=== PATIENT | female | born 1995 | race Caucasian/White ===

== ENCOUNTER → 2016-08-30 | Outpatient (RCR) | payer BC, OTHER ==
--- OUTSIDE RECORDS SUMMARY | 2016-06-01 09:41 | XMS REPORT | Continuity of Care Document ---
Author Author [facility] Organization [facility] Address Unknown Phone Unavailable Care Team Providers Care Jd Edwards Name Role Phone Jose France PCP [phone] Source Comments Some departments are not documenting in the electronic medical record. If you do not see the information that you expected, contact Release of Information in the Health Information Management department at [phone] for further assistance in locating additional records.[facility] Active Allergies and Adverse Reactions No Known Allergies Current Medications Prescription Sig. Disp. Refills Start End Date Status Date hydrocodone/acetaminophen Take 1-2 Tabs by mouth Active (VICODIN) 5/500 mg PO Every 4 Hours as needed. 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 No rupture, cytology. Preoperative AFP 8.4 and CA125 18.4 Social History Tobacco Use Types Packs/Day Years Used Date Never Assessed Last Filed Vital Signs Vital Sign Reading Time Taken Blood Pressure 106/55 08/01/2010 11:36 AM MANAGER CIVIL Pulse 85 08/01/2010 11:36 AM MANAGER CIVIL Temperature 36.8 C (98.3 F) 08/01/2010 11:36 AM MANAGER CIVIL Respiratory Rate - - Height 1.651 m (5' 5") 08/01/2010 11:36 AM MANAGER CIVIL Weight 66.951 kg (147 lb 9.6 oz) 08/01/2010 11:36 AM MANAGER CIVIL Body Mass Index 24.56 08/01/2010 11:36 AM MANAGER CIVIL Oxygen Saturation - - Plan of Care Health Maintenance Due Date Last Done Comments Physical (Comprehensive) 2000 Exam Hpv Vaccines (#1) 2004 Pertussis Vaccine 2004 Tetanus Vaccine 2010 Cervical Cancer Screening 2014 Influenza Vaccine 03/02/2016 Results from Last 3 Months Not on file
[~2016-08-30] MED LIST: HYDR1CAP2 PO
== END | disposition home or self-care (01) ==
PROVIDERS: ATTEND Nurse Practitioner Family
DX: M25.552 Pain in left hip (principal)

== ENCOUNTER 2016-10-10 22:07 | Emergency (ER) | payer BC, OTHER ==
[~2016-10-10] VITALS: Ht 167.6 cm; Wt 68.9 kg
[2016-10-10] MEDS ORDERED: ONDANSETRON 4 MG/2 ML (SDV) Z0FRAN ONE (22:09)
[2016-10-10] MEDS ORDERED: NS IV 1000 ML 1,000 ML ONE (22:09)
--- NOTE | 2016-10-10 22:17 | ED General ---
General Stated Complaint: ETOH Source of Information: Patient Exam Limitations: No Limitations (RICHIE WEBSTER APRN) History of Present Illness Time Seen by Provider: 22:15 Initial Comments To ER by her fianc with reports of alcohol intoxication. Patient began drinking tonight about 5 p.m. for Sunday while out with friends. She had entire picture of simon by herself, 6-7 beers and several shots of tequila. Her last drink was about 25 minutes prior to arrival to the emergency room. They were at [employer] getting some ice cream and patient passed out onto the ground. She denies any other recreational substance abuse though she does take meloxicam and had that this evening and 2 of her Zoloft which is her normal dose every evening Timing/Duration: 1-2 Days Severity: Moderate (RICHIE WEBSTER APRN) Allergies and Home Medications Allergies Uncoded Allergies: Zofran (Adverse Reaction, Mild, 10/11/16) Extraparametal symptoms Home Medications Hydrocodone Bit/Acetaminophen 1 Each Capsule, 1 EACH PO Q4HR PRN, (Reported) Constitutional: see HPI EENTM: see HPI Respiratory: no symptoms reported Cardiovascular: no symptoms reported Genitourinary: no symptoms reported Musculoskeletal: no symptoms reported Skin: no symptoms reported Psychiatric/Neurological: No Symptoms Reported Hematologic/Lymphatic: No Symptoms Reported (RICHIE WEBSTER APRN) Past Vddqrrx-Trnspl-Rpfxxa Hx Respiratory Hx Respiratory Disorders: Yes (RICHIE WEBSTER APRN) Cardiovascular Hx Cardiac Disorders: Yes (RICHIE WEBSTER APRN) Neurological Hx Neurological Disorders: No (RICHIE WEBSTER APRN) Reproductive System Hx Reproductive Disorders: No (RICHIE WEBSTER APRN) Genitourinary Hx Genitourinary Disorders: No (RICHIE WEBSTER APRN) Gastrointestinal Hx Gastrointestinal Disorders: No (RICHIE WEBSTER APRN) Musculoskeletal Hx Musculoskeletal Disorders: No (RICHIE WEBSTER APRN) Endocrine Hx Endocrine Disorders: No (RICHIE WEBSTER APRN) HEENT HX ENT Disorders: No (RICHIE WEBSTER APRN) Psychosocial Hx Psychiatric Problems: No (RICHIE WEBSTER APRN) Blood Transfusions Hx Blood Disorders: No (RICHIE WEBSTER APRN) Physical Exam Vital Signs Vital Sign - Last 12Hours 10/10/16 22:07 Temp 97.6 Pulse 101 Resp 16 B/P (MAP) 139/88 Pulse Ox 100 O2 Delivery Room Air (ALETHA JACOBSON MD) Vital Signs Capillary Refill : (RICHIE WEBSTER APRN) General Appearance: No Apparent Distress, WD/WN, Other (mental status varies from incoherent with mumbling to alert and talking constantly. She is able to recite her date, location and repetitively apologizes for getting drunk tonight. She is actively vomiting upon arrival to the emergency room.) Eyes: Bilateral Eye EOMI, Bilateral Eye Normal Inspection, Bilateral Eye PERRL HEENT: PERRL/EOMI, TMs Normal, Other (horizontal nystagmus noted) Neck: Full Range of Motion, Normal Inspection Respiratory: Normal Breath Sounds, No Accessory Muscle Use, No Respiratory Distress Cardiovascular: Regular Rate, Rhythm, Normal Peripheral Pulses Gastrointestinal: Non Tender, Soft Extremity: Normal Capillary Refill, Normal Inspection Neurologic/Psychiatric: Alert, Oriented x3, No Motor/Sensory Deficits Skin: Normal Color, Warm/Dry (RICHIE WEBSTER APRN) Progress/Results/Core Measures Results/Orders Lab Results Laboratory Tests Test 10/10/16 22:12 10/10/16 23:13 Range/Units White Blood Count 11.2 H 4.3-11.0 10^3/uL Red Blood Count 4.34 L 4.35-5.85 10^6/uL Hemoglobin 12.4 11.5-16.0 G/DL Hematocrit 37 35-52 % Mean Corpuscular Volume 86 80-99 FL Mean Corpuscular Hemoglobin 29 25-34 PG Mean Corpuscular Hemoglobin Concent 33 32-36 G/DL Red Cell Distribution Width 12.1 10.0-14.5 % Platelet Count 327 130-400 10^3/uL Mean Platelet Volume 10.5 H 7.4-10.4 FL Neutrophils (%) (Auto) 37 L 42-75 % Lymphocytes (%) (Auto) 54 H 12-44 % Monocytes (%) (Auto) 6 0-12 % Eosinophils (%) (Auto) 3 0-10 % Basophils (%) (Auto) 0 0-10 % Neutrophils # (Auto) 4.2 1.8-7.8 X 10^3 Lymphocytes # (Auto) 6.0 H 1.0-4.0 X 10^3 Monocytes # (Auto) 0.6 0.0-1.0 X 10^3 Eosinophils # (Auto) 0.3 0.0-0.3 10^3/uL Basophils # (Auto) 0.0 0.0-0.1 10^3/uL Sodium Level 144 135-145 MMOL/L Potassium Level 3.6 3.6-5.0 MMOL/L Chloride Level 112 H 98-107 MMOL/L Carbon Dioxide Level 20 L 21-32 MMOL/L Anion Gap 12 5-14 MMOL/L Blood Urea Nitrogen 12 7-18 MG/DL Creatinine 0.74 0.60-1.30 MG/DL Estimat Glomerular Filtration Rate > 60 BUN/Creatinine Ratio 16 Glucose Level 98 70-105 MG/DL Calcium Level 8.9 8.5-10.1 MG/DL Magnesium Level 2.2 1.8-2.4 MG/DL Total Bilirubin 0.2 0.1-1.0 MG/DL Aspartate Amino Transf (AST/SGOT) 18 5-34 U/L Alanine Aminotransferase (ALT/SGPT) 10 0-55 U/L Alkaline Phosphatase 47 40-136 U/L Total Protein 7.2 6.4-8.2 G/DL Albumin 4.4 3.2-4.5 G/DL Serum Alcohol 206 H <10 MG/DL Urine Color YELLOW Urine Clarity CLEAR Urine pH 5 5-9 Urine Specific Bowdle 1.010 L 1.016-1.022 Urine Protein NEGATIVE NEGATIVE Urine Glucose (UA) NEGATIVE NEGATIVE Urine Ketones NEGATIVE NEGATIVE Urine Nitrite NEGATIVE NEGATIVE Urine Bilirubin NEGATIVE NEGATIVE Urine Urobilinogen NORMAL NORMAL MG/DL Urine Leukocyte Esterase NEGATIVE NEGATIVE Urine RBC (Auto) NEGATIVE NEGATIVE Urine RBC NONE /HPF Urine WBC NONE /HPF Urine Squamous Epithelial Cells 0-2 /HPF Urine Crystals NONE /LPF Urine Bacteria NEGATIVE /HPF Urine Casts NONE /LPF Urine Mucus NEGATIVE /LPF Urine Culture Indicated NO Urine Test NEGATIVE NEGATIVE Urine Opiates Screen NEGATIVE NEGATIVE Urine Oxycodone Screen NEGATIVE NEGATIVE Urine Methadone Screen NEGATIVE NEGATIVE Urine Propoxyphene Screen NEGATIVE NEGATIVE Urine Barbiturates Screen NEGATIVE NEGATIVE Ur Tricyclic Antidepressants Screen NEGATIVE NEGATIVE Urine Phencyclidine Screen NEGATIVE NEGATIVE Urine Amphetamines Screen NEGATIVE NEGATIVE Urine Methamphetamines Screen NEGATIVE NEGATIVE Urine Benzodiazepines Screen NEGATIVE NEGATIVE Urine Cocaine Screen NEGATIVE NEGATIVE Urine Cannabinoids Screen NEGATIVE NEGATIVE (ALETHA JACOBSON MD) My Orders Orders - ALETHA JACOBSON MD Ondansetron Injection (Zofran Injectio (10/10/16 22:09) Ns Iv 1000 Ml (Sodium Chloride 0.9%) (10/10/16 22:09) Diphenhydramine Injection (Benadryl Inje (10/10/16 23:45) Magnesium (10/10/16 23:39) Diphenhydramine Injection (Benadryl Inje (10/10/16 23:45) (ALETHA JACOBSON MD) Medications Given in ED Current Medications Medications Dose Ordered Sig/Vikas Route Start Time Stop Time Status Last Admin Dose Admin Diphenhydramine HCl 12.5 mg Q4H ONCE IVP 10/10/16 23:45 10/10/16 23:46 DC 10/10/16 23:36 12.5 MG Ondansetron HCl 8 mg ONCE ONCE IVP 10/10/16 22:30 10/10/16 22:31 DC 10/10/16 22:12 8 MG (ALETHA JACOBSON MD) Vital Signs/I&O Vital Sign - Last 12Hours 10/10/16 22:07 Temp 97.6 Pulse 101 Resp 16 B/P (MAP) 139/88 Pulse Ox 100 O2 Delivery Room Air Intake and Output 10/11/16 00:00 Intake Total 1000 ml Balance 1000 ml (ALETHA JACOBSON MD) Progress Note #1: Time: 00:05 Progress Note Care of this patient was assumed from Richie Webster at 23:15. At approximately 23 :35 I was called to patient's room because she was having persistent dyskinesia involving facial twitching and twitching of the shoulders. Benadryl 12.5 mg IV was administered. The dyskinesia eventually resolved and patient fell sleep. The cause of the dyskinesia is uncertain but may be related to Zofran side effect. We will monitor the patient for a couple of hours to ensure there are no further problems. CT of the head and cervical spine is viewed by me and [facility] report reviewed. No acute injuries were identified. Patient is alert and oriented but sluggish. Progress Note #2: Time: 01:26 Progress Note Patient is now ambulatory and has been up to the bathroom twice. She walks without assistance. The dyskinesia is now minimal. It is absent when she is focused on other things. Patient's does report she has some minor twitches and takes when nervous or startled at baseline. (ALETHA JACOBSON MD) Diagnostic Imaging Diagonstic Imaging: CT Plain Films/CT/US/NM/MRI: c-spine, head Comments CT head and C-spine viewed by me and [facility] report reviewed. No acute injuries were identified. There is question of a thyroid nodule in the isthmus. (ALETHA JACOBSON MD) Departure Impression Impression: Primary Impression: Alcohol intoxication Qualified Codes: F10.120 - Alcohol abuse with intoxication, uncomplicated Additional Impressions: Dyskinesia Fall on same level Qualified Codes: W18.30XA - Fall on same level, unspecified, initial encounter Nausea & vomiting Qualified Codes: R11.2 - Nausea with vomiting, unspecified Thyroid nodule Disposition: HOME, SELF-CARE Condition: Improved Departure-Patient Inst. Decision time for Depature: 01:27 (ALETHA JACOBSON MD) Referrals: UNKNOWN (PCP/Family) Primary Care Physician Patient Instructions: ALCOHOL AND SUBSTANCE ABUSE Add. Discharge Instructions: Drink plenty of clear liquids. Add Zofran (ondansetron) to your list of allergies as it may be the cause of your dyskinesia. If dyskinesia returns, take Benadryl (diphenhydramine) up to 50 mg every 4 hours as needed. Return to care if symptoms worsen. There was a question of a thyroid nodule on your CT scan. Follow-up with your primary care provider has a follow-up thyroid ultrasound may be beneficial. Consume alcohol only in extreme moderation in the future. RICHIE WEBSTER APRN Oct 10, 2016 22:17 ALETHA JACOBSON MD Oct 11, 2016 00:10
[2016-10-10 22:21] LABS: BASOPHILS % (AUTO) 0 % (0-10); EOSINOPHILS # (AUTO) 0.3 10^3/uL (0.0-0.3); EOSINOPHILS % (AUTO) 3 % (0-10); LYMPHOCYTES % (AUTO) 54 % (12-44); MEAN CORPUSCULAR HEMOGLOBIN 29 PG (25-34); MEAN CORPUSCULAR HGB CONC 33 G/DL (32-36); MEAN CORPUSCULAR VOLUME 86 FL (80-99); MEAN PLATELET VOLUME 10.5 FL (7.4-10.4); MONOCYTES # (AUTO) 0.6 X 10^3 (0.0-1.0); MONOCYTES % (AUTO) 6 % (0-12); NEUTROPHILS # (AUTO) 4.2 X 10^3 (1.8-7.8); NEUTROPHILS % (AUTO) 37 % (42-75); PLATELET COUNT 327 10^3/uL (130-400); RED BLOOD COUNT 4.34 10^6/uL (4.35-5.85); RED CELL DISTRIBUTION WIDTH 12.1 % (10.0-14.5); WHITE BLOOD COUNT 11.2 10^3/uL (4.3-11.0)
[2016-10-10] MEDS ORDERED: ONDANSETRON 4 MG/2 ML (SDV) Z0FRAN IVP ONE (22:30)
[2016-10-10] MEDS ORDERED: NS IV 1000 ML 1,000 ML IV SCH (22:30)
[2016-10-10 22:37] LABS: ALANINE AMINOTRANSFERASE 10 U/L (0-55); ALBUMIN 4.4 G/DL (3.2-4.5); ALCOHOL 206 MG/DL (<10); ANION GAP 12 MMOL/L (5-14); ASPARTATE AMINO TRANSFERASE 18 U/L (5-34); BILIRUBIN,TOTAL 0.2 MG/DL (0.1-1.0); BLOOD UREA NITROGEN 12 MG/DL (7-18); BUN/CREATININE RATIO 16; CALCIUM 8.9 MG/DL (8.5-10.1); CARBON DIOXIDE 20 MMOL/L (21-32); CHLORIDE 112 MMOL/L (98-107); CREATININE SERUM 0.74 MG/DL (0.60-1.30); GFR ESTIMATED > 60; GLUCOSE 98 MG/DL (70-105); POTASSIUM 3.6 MMOL/L (3.6-5.0); SODIUM 144 MMOL/L (135-145); TOTAL PROTEIN 7.2 G/DL (6.4-8.2)
[2016-10-10 23:20] LABS: BILIRUBIN,URINE NEGATIVE (NEGATIVE); KETONES,URINE NEGATIVE (NEGATIVE); LEUKOCYTE ESTERASE ,URINE NEGATIVE (NEGATIVE); NITRITE,URINE NEGATIVE (NEGATIVE); PH,URINE 5 (5-9); PROTEIN,URINE NEGATIVE (NEGATIVE); UROBILINOGEN,URINE NORMAL (NORMAL)
[2016-10-10] MEDS ORDERED: diphenhydrAMINE 50 MG/ML INJ (BENADRYL) ONE (23:29)
[2016-10-10 23:33] LABS: SQUAMOUS EPITHELIAL CELL,UR 0-2 /HPF
[2016-10-10] MEDS ORDERED: diphenhydrAMINE 50 MG/ML INJ (BENADRYL) IVP ONE (23:45)
[2016-10-10] MEDS ORDERED: diphenhydrAMINE 50 MG/ML INJ (BENADRYL) IM ONE (23:45)
[2016-10-11 01:32] VITALS: BP 109/60
--- NOTE | 2016-10-12 12:23 | RADIOLOGY REPORT ---
Patient name: ANALIA ENGLISH ACC: [id number] : 1995 Age:21 years Class: Emergency Gender: Female ORD DR: ALETHA KIRKLAND Phone: ATT DR: RICHIE WEBSTER Phone: Procedure: CT HEAD/CERVICAL SPINE WO ORD Date: 10/10/2016 10:56 PM Reason for Study: Final Report PROCEDURE: CT head and CT cervical spine without contrast. TECHNIQUE: Multiple contiguous axial images were obtained through the brain and cervical spine without the use of intravenous contrast. Sagittal and coronal reformations through the cervical spine were then performed. INDICATION: Fall. FINDINGS: CT HEAD: There is a 9 mm hypodense lesion seen in the right basal ganglia. This may relate to a Virchow-Javid space. It does not appear to have significant mass effect and is presumably an incidental finding. There is no intracranial hemorrhage. There is no hydrocephalus. The calvarium and the visualized portions of the orbits appear unremarkable. There is mild mucosal thickening in the anterior ethmoidal air cells on the left side and mild mucosal thickening in the maxillary sinuses. CT CERVICAL SPINE: There is satisfactory alignment of the posterior spinal line, facet joints, and atlantooccipital joints. Normal alignment of the lateral masses of C1 and C2 is seen and there is no widening of the predental space. There is slight straightening of the lordotic curvature in the cervical spine and mild lateral left convexity seen on the coronal images, probably positional. No fracture is seen. There is a thyroid isthmus nodule suggested measuring approximately 1 x 1.5 cm. Better evaluation with a thyroid ultrasound would be suggested. IMPRESSION: CT HEAD: 1. No intracranial hemorrhage. 2. Minimal sinus disease. 3. 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 CT CERVICAL SPINE: 1. No fracture is seen. 2. Suggestion of a nodule in the thyroid isthmus. Correlation with a thyroid ultrasound would be recommended. 3. This is in agreement with the preliminary [facility] report. Dictated by: Created by: Jg Nickerson on 10/11/2016 8:31 AM Transcribed by: UMANG 10/11/2016 8:47 AM ELEONORA
== END 2016-10-11 01:32 | disposition home or self-care (01) ==
LOC: EDUNIT# 22:07 → ER 22:07
DX: F10.129 Alcohol abuse with intoxication, unspecified (principal); R11.2 Nausea with vomiting, unspecified; G24.9 Dystonia, unspecified; E04.1 Nontoxic single thyroid nodule; Z79.899 Other long term (current) drug therapy; Y90.7 Blood alcohol level of 200-239 mg/100 ml
CPT/HCPCS: 36415; 70450; 70490; 72125; 80053; 80306; 80320; 81000; 83735; 84703; 85025; 96361; 96374; 96375

== ENCOUNTER → 2016-10-19 | Outpatient (CLI) | payer BC, OTHER ==
[2016-10-19 15:02] LABS: THYROID STIMULATING HORMONE 1.51 UIU/ML (0.35-4.94)
--- NOTE | 2016-10-19 18:10 | Diagnostic Imaging Report ---
Transabdominal and transvaginal pelvic ultrasound. INDICATION: History of Sertoli?Leydig cell cancer. FINDINGS: The uterus is 5.7 x 4.1 x 3.2 cm. The endometrial stripe is 6 mm in thickness. The myometrium is fairly homogeneous with no focal mass. The right ovary is 3.9 x 3.9 x 2.0 cm. There is color Doppler seen demonstrating flow within the ovarian parenchyma with multiple follicles noted. No solid mass. The left ovary has been surgically removed. IMPRESSION: Unremarkable exam. Dictated by: Dictated on workstation # [id number]
--- NOTE | 2016-10-19 18:39 | Diagnostic Imaging Report ---
PROCEDURE: US thyroid. TECHNIQUE: Multiple real-time grayscale images were obtained of the thyroid in various projections. INDICATION: Thyroid nodule seen on CT cervical spine. FINDINGS: The right lobe is 4.8 x 1.5 x 2.0 cm. The left thyroid lobe is 4.5 x 1.4 x 1.6 cm. There is a 1.7 x 0.6 x 1.2 cm hypoechoic solid nodule in the right side of the thyroid isthmus. Another adjacent hypoechoic nodule, measuring 0.7 cm, superior to junction of the right lobe and the isthmus is seen. In the inferior aspect of the left thyroid lobe there is a suggestion of focal calcification, measuring 2 mm, with no significant nodule. IMPRESSION: There is a 1.7 cm dominant nodule in the thyroid isthmus with internal vascularity seen. This is indeterminate. Ultrasound-guided biopsy is suggested. Dictated by: Dictated on workstation # [id number]
[2016-10-20 07:12] LABS: ESTRADIOL 79 pg/mL
[2016-10-20 07:13] LABS: ALPHA-FETO PROTEIN MARKER 4.6 ng/mL (1.5-10.0)
[2016-10-21 15:48] LABS: SEX HORMONE BINDING GLOBULIN 154.2 H NMOL/L (27.8-146.0)
[2016-10-23 08:44] LABS: INHIBINB PATIENT 195 pg/mL
[2016-10-24 17:25] LABS: INHIBINA 10 pg/mL
== END ==
LOC: RAD 12:38
PROVIDERS: ATTEND Family Medicine
DX: E04.1 Nontoxic single thyroid nodule (principal); C56.2 Malignant neoplasm of left ovary
CPT/HCPCS: 36415; 76536; 76830; 76856; 82105; 82670; 83520; 84403; 84439; 84443; 86304; 86336

== ENCOUNTER → 2016-12-13 | Outpatient (RCR) | payer BC, OTHER ==
--- OUTSIDE RECORDS SUMMARY | 2016-09-14 09:48 | XMS REPORT | Continuity of Care Document ---
Author Author [facility] Organization [facility] Address Unknown Phone Unavailable Care Team Providers Care Drywall Metal Stud Worker Name Role Phone Jose France PCP [phone] Source Comments Some departments are not documenting in the electronic medical record. If you do not see the information that you expected, contact Release of Information in the Health Information Management department at [phone] for further assistance in locating additional records.[facility] Active Allergies and Adverse Reactions No Known [...] Taken Blood Pressure 106/55 08/01/2010 11:36 AM COLLAR FELLER Pulse 85 08/01/2010 11:36 AM COLLAR FELLER Temperature 36.8 C (98.3 F) 08/01/2010 11:36 AM COLLAR FELLER Respiratory Rate - - Height 1.651 m (5' 5") 08/01/2010 11:36 AM COLLAR FELLER Weight 66.951 kg (147 lb 9.6 oz) 08/01/2010 11:36 AM COLLAR FELLER Body Mass Index 24.56 08/01/2010 11:36 AM COLLAR FELLER Oxygen Saturation - - Plan of Care Health Maintenance Due Date Last Done Comments Physical (Comprehensive) 2000 Exam Hpv Vaccines (#1) 2004 Pertussis Vaccine 2004 Tetanus Vaccine 2010 Cervical Cancer Screening 2014 Influenza Vaccine 03/02/2016 Results from Last 3 Months Not on file
== END | disposition home or self-care (01) ==
PROVIDERS: ATTEND Physician Assistant Medical
DX: M25.552 Pain in left hip (principal)

== ENCOUNTER 2017-01-10 08:01 | Outpatient (RCR) | payer BC, OTHER | END 2017-01-29 09:42 | disposition home or self-care (01) | PROVIDERS: ATTEND Physician Assistant Medical | DX: M25.552 Pain in left hip (principal) ==